=== PATIENT | female | born 1970 | race Caucasian/White ===

== ENCOUNTER → 2018-01-04 10:15 | Outpatient (CLI) | payer BC, SELFPAY ==
--- NOTE | 2018-01-04 10:22 | XR_ITS ---
XR wrist LT min 3V HISTORY ITS.REASON: LEFT WRIST PAIN ORDERING PHYSICIAN: Emir Whitney MD PATIENT AGE: 47 years Comparison: None FINDINGS: There is fragmentation of the lunate suggesting avascular necrosis. Subarticular cystic change is present involving the distal radius medially toward the ulna measuring 8 mm. Minimal sclerosis involves the distal aspect of the ulna at the distal radioulnar joint. There are mild osteoarthritic changes of the scaphotrapezium joint. No acute fracture or dislocation. IMPRESSION: 1. 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 2. Mild osteoarthritic change of the distal radial ulnar joint with subarticular cystic change of the distal radius. 3. Osteoarthritis of the scaphotrapezium joint
== END ==
PROVIDERS: PCP Family Medicine; Visit Provider Family Medicine
DX: M25.532 Pain in left wrist (principal)
CPT/HCPCS: 73110

== ENCOUNTER 2020-04-02 13:08 | Emergency (ER) | payer BC, SELFPAY ==
[2020-04-02 13:38] VITALS: BP 141/78; PULSE 101; RESP 19; TEMP 36.8; O2SAT 99; BMI 30.4
--- NOTE | 2020-04-02 13:52 | HMH.EDUTC ---
[facility] [place] Disposition Clinical Impression: Gastroenteritis Bilateral otitis externa Qualifiers: Otitis externa type: unspecified type Chronicity: chronic Qualified Code(s): H60.63 - Unspecified chronic otitis externa, bilateral Disposition: Home, Self-Care Condition on Discharge: Good Instructions: How to Instill Ear Drops, Viral Gastroenteritis Additional Instructions: If you diarrhea continues, please return a stool sample so it can be checked for different infections and food poisonings. Take the medications as directed. Follow up with your primary care physician. Use the ear drops as directed. Drink plenty of fluids. Take tylenol or ibuprofen for pain or fever. GO TO THE ER FOR ANY WORSENING SYMPTOMS FOLLOW THE DIRECTIONS ON THE COVID-19 HAND OUT THAT WE GAVE YOU REGARDING SELF-ISOLATION UNTIL YOU KNOW YOUR COVID-19 RESULTS Prescriptions: Ondansetron [Zofran 4mg ODT] 4 mg PO Q8HP PRN #15 tab.rapdis PRN Reason: Nausea Transmission Status: Received by [id number] Ciprofloxacin HCl/Dexameth [Ciprodex Otic Suspension] 2 drops EAR-BOTH BID 7 Days #1 bottle Transmission Status: Received by [email or web address] Referrals: Josi Banda MD [Primary Care Provider] - Forms: Work/School Release Time of Disposition: 14:00 Medical Decision Making - Medical Records Medical records reviewed: No: I reviewed the patient's medical records. - Des Inquiry Pt receiving controlled substance: No Vital Signs: 04/02/20 13:38 04/02/20 14:10 Temperature 98.2 F 98.2 F Temperature Source Oral Pulse Rate 101 H Pulse Rate [Right Brachial] 101 H Respiratory Rate 19 19 Blood Pressure 141/78 H Blood Pressure [Right Arm] 141/78 H Blood Pressure Mean [Right Arm] 99 Blood Pressure Source [Right Arm] Automatic Cuff Blood Pressure Position [Right Arm] Sitting 02 Sat by Pulse Oximetry 99 Oxygen Delivery Method Room Air - Lab Data Lab Results 04/02/20 14:43: [facility] Negative Orders (Tests/Meds): ORDERS Category Date Time Status Covid-19 Nasal PCR Sendout Nik Stat Lab 04/02/20 13:23 Received Strep Screen Confirmation Stat Micro 04/02/20 14:43 Received [facility] [place] HPI - General Stated complaint: covid symptons Time Seen by Provider: 04/02/20 13:45 Mode of Arrival: Ambulatory Source of Information: Patient Limitations: No Limitations Description of Symptoms (Recalled from Triage Doc. by RN): PATIENT C/O NAUSEA, DIARRHEA, AND LOW-GRADE FEVER. WANTS TO BE TESTED FOR COVID HEENT Symptoms (Recalled from RN notes): No Resp Symptoms (Recalled from RN notes): No Skin Symptoms (Recalled from RN notes): No MS Symptoms (Recalled from RN notes): No Functional Status (Recalled from RN notes): WNL - History of Present Illness Provider Complaint: She c/o diarrhea and nausea for the past 3 days. She has also had a fever up to 101. 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 She denies any known exposure to COVID-19. She does c/o sore throat also. - Related Data Previous Rx's Medication Instructions Recorded Ciprofloxacin HCl/Dexameth 2 drops EAR-BOTH BID 7 Days #1 04/02/20 [Ciprodex Otic Suspension] bottle Ondansetron [Zofran 4mg ODT] 4 mg PO Q8HP PRN #15 tab.rapdis 04/02/20 Allergies Allergy/AdvReac Type Severity Reaction Status Date / Time No Known Allergies Allergy Verified 04/02/20 13:44 - Worker's Comp Is this a Worker's Comp case?: No [facility] History - Hepatitis A Screen Drug use history?: No High risk sexual behaviors?: No History of sexually transmitted infection?: No Currently employed?: No Childcare worker?: No Do you have indoor plumbing?: Yes Do you have electricity?: Yes Attestation statement:: This patient has been screened for Hepatitis A risk factors. I have reviewed the patient's past medical history: Yes - Social History [place]
[2020-04-02 14:10] VITALS: BP 141/78; PULSE 101; RESP 19; TEMP 36.8; O2SAT 99
[2020-04-02 14:44] LABS: UTC Strep Screen (Rapid) Negative (Negative)
[2020-04-03 13:23] LABS: Covid-19 Nasal PCR Sendout Lex Not Detected
== END 2020-04-02 14:11 | disposition home or self-care (01) ==
PROVIDERS: Emergency Provider Nurse Practitioner Family; PCP Family Medicine
DX: K52.9 Noninfective gastroenteritis and colitis, unspecified (principal); H60.63 Unspecified chronic otitis externa, bilateral; Z03.818 Encounter for observation for suspected exposure to other biological agents ruled out
CPT/HCPCS: 87880; 99201; U0004

== ENCOUNTER 2021-03-05 09:14 | Emergency (ER) | payer BC, SELFPAY ==
[2021-03-05 09:20] VITALS: BP 126/89; PULSE 99; RESP 20; TEMP 36.5; O2SAT 97; BMI 31.9
[2021-03-05 09:58] VITALS: BP 126/89; PULSE 99; RESP 20; TEMP 36.5; O2SAT 97
--- NOTE | 2021-03-05 09:58 | HMH.EDUTC ---
[facility] [place] Disposition Clinical Impression: Viral syndrome Disposition: Home, Self-Care Condition on Discharge: Good Instructions: DI for Viral Syndrome, Preventing the Spread of Coronavirus Discharge Instructions Additional Instructions: Drink plenty of fluids. Take tylenol or ibuprofen for pain or fever. Take the medications as directed. Follow up with your regular doctor. GO TO THE ER FOR ANY WORSENING SYMPTOMS Quarantine until you know the results of your covid-19 test. If it is positive, the health department should call you and give you further instructions about your length of quarantine and other things. Prescriptions: Ondansetron [Zofran 4mg ODT] 4 mg PO Q8HP PRN #20 tab.rapdis PRN Reason: Nausea Transmission Status: Received by [facility] Referrals: Emir Whitney MD [Primary Care Provider] - Forms: Work/School Release Time of Disposition: 10:09 Medical Decision Making - Medical Records Medical records reviewed: No: I reviewed the patient's medical records. - Des Inquiry Pt receiving controlled substance: No Vital Signs: 03/05/21 09:20 03/05/21 09:58 Temperature 97.7 F 97.7 F Temperature Source Temporal Artery Scan Pulse Rate 99 H Pulse Rate [Left Brachial] 99 H Respiratory Rate 20 20 Blood Pressure 126/89 Blood Pressure [Left Arm] 126/89 Blood Pressure Mean [Left Arm] 101 Blood Pressure Source [Left Arm] Automatic Cuff Blood Pressure Position [Left Arm] Sitting 02 Sat by Pulse Oximetry 97 Oxygen Delivery Method Room Air - Lab Data Lab results reviewed: Yes: I reviewed the patient's lab results. Lab Results 03/05/21 10:04: Strep [facility] Negative Orders (Tests/Meds): ORDERS Category Date Time Status Strep Screen Confirmation Stat Micro 03/05/21 10:04 Received [facility] [place] HPI - General Stated complaint: cold Time Seen by Provider: 03/05/21 09:58 Mode of Arrival: Ambulatory Source of Information: Patient Limitations: No Limitations Description of Symptoms (Recalled from Triage Doc. by RN): PATIENT C/O CONGESTION, COUGH, HEADACHE SINCE THURSDAY. REQUESTING COVID TEST HEENT Symptoms (Recalled from RN notes): No Resp Symptoms (Recalled from RN notes): No Skin Symptoms (Recalled from RN notes): No MS Symptoms (Recalled from RN notes): No Functional Status (Recalled from RN notes): WNL - History of Present Illness Provider Complaint: She states that since yesterday she has had sore throat, a dry cough, and feeling bad. She has been vaccinated against covid-19. - Related Data Previous Rx's Medication Instructions Recorded Ciprofloxacin HCl/Dexameth 2 drops EAR-BOTH BID 7 Days #1 04/02/20 [Ciprodex Otic Suspension] bottle Ondansetron [Zofran 4mg ODT] 4 mg PO Q8HP PRN #15 tab.rapdis 04/02/20 Ondansetron [Zofran 4mg ODT] 4 mg PO Q8HP PRN #20 tab.rapdis 03/05/21 Allergies Allergy/AdvReac Type Severity Reaction Status Date / Time No Known Allergies Allergy Verified 04/02/20 13:44 - Worker's Comp Is this a Worker's Comp case?: No [facility] History - Hepatitis A Screen Drug use history?: No High risk sexual behaviors?: No History of sexually transmitted infection?: No Currently employed?: No Childcare worker?: No Do you have indoor plumbing?: Yes Do you have electricity?: Yes Attestation statement:: This patient has been screened for Hepatitis A risk factors. I have reviewed the patient's past medical history: Yes - Social History Alcohol Intake: never Occupational Status: other ROS Obtained: Yes All systems reviewed & no additional complaints - Constitutional Constitutional: Reports chills, Denies fever(s), Reports poor appetite, Reports malaise - Eyes Eyes: Denies eye discharge - ENT Ears, Nose, Mouth, and Throat: Reports as per HPI - Cardiovascular Cardiovascular: Denies chest pain - Respiratory Respiratory: Denies chest congestion, Reports cough, Denies dyspnea, Denies strid
[2021-03-05 10:12] LABS: UTC Strep Screen (Rapid) Negative (Negative)
== END 2021-03-05 10:17 | disposition home or self-care (01) ==
PROVIDERS: Emergency Provider Nurse Practitioner Family; PCP Family Medicine
DX: B34.9 Viral infection, unspecified (principal); Z20.822 Contact with and (suspected) exposure to COVID-19
CPT/HCPCS: 87880; 99203; G0463; U0003

== ENCOUNTER → 2021-09-07 09:11 | Outpatient (CLI) | payer BC, SELFPAY | PROVIDERS: Visit Provider Nurse Practitioner | DX: Z20.822 Contact with and (suspected) exposure to COVID-19 (principal) | CPT/HCPCS: C9803; U0003; U0005 ==

== ENCOUNTER → 2022-01-14 09:38 | Outpatient (POV) | payer BC, SELFPAY | PROVIDERS: Visit Provider Dermatology | DX: Z00.00 Encounter for general adult medical examination without abnormal findings (principal) ==

== ENCOUNTER → 2023-03-07 08:28 | Outpatient (CLI) | payer BC, SELFPAY ==
[2023-03-07 09:06] LABS: Basophils # 0.1 K/mm3 (0-0.2); Basophils % 1.3 % (0.1-2.0); Eosinophils # 0.3 K/mm3 (0.0-0.4); Eosinophils % 4.3 % (0.1-12.0); Hematocrit 52.3 % (37.0-47.0); Hemoglobin 16.8 g/dL (12.2-16.2); Lymphocytes % 25.2 % (10-50); Mean Corpuscular HGB Conc 32.1 g/dL (31.8-35.4); Mean Corpuscular Hemoglobin 30.7 pg (27.0-31.2); Mean Corpuscular Volume 95.7 fl (81-99); Mean Platelet Volume 8.1 fl (7.4-10.4); Monocytes # 0.5 K/mm3 (0.1-1.0); Monocytes % 6.4 % (1.7-9.3); Neutrophils # 4.9 K/mm3 (1.8-7.8); Neutrophils % 62.7 % (37.0-80.0); Platelet Count 290 K/mm3 (142-424); Red Blood Count 5.46 M/mm3 (4.20-5.40); White Blood Count 7.8 K/mm3 (4.8-10.8)
[2023-03-07 09:14] LABS: Chloride 104 mmol/L (98-107); Potassium 4.9 mmoL/L (3.5-5.1); Sodium 140 mmol/L (136-145)
[2023-03-07 09:16] LABS: Alanine Aminotransferase 25 U/L (12-78); Aspartate Amino Transferase 28 U/L (14-36); Blood Urea Nitrogen 12 mg/dl (7-17); Estimated Glomerular Filt Rate 75 ml/min (>60); GFR (African American) 91 ML/MIN (>60)
[2023-03-07 09:17] LABS: Albumin Level 3.9 g/dl (3.5-5.0); Albumin/Globulin Ratio 1.4 (1.1-1.8); Alkaline Phosphatase 99 U/L (38-126); Anion Gap 10.9 mEq/L (5-15); Bilirubin,Total 0.6 mg/dl (0.2-1.3); Calcium 9.7 mg/dl (8.4-10.2); Carbon Dioxide 30 mmol/L (22.0-30.0); Chol/HDL Ratio 4.7 (1-3.5); Cholesterol 295 mg/dl (140-200); Globulin 2.8 g/dL (1.3-3.2); Glucose 100 mg/dl (74-100); HDL Cholesterol 63 mg/dl (40-60); Total Protein,Serum 6.7 g/dl (6.3-8.2); Triglycerides 138 mg/dl (30-150); VLDL Cholesterol 28 mg/dL (0-40)
[2023-03-07 09:48] LABS: Thyroid Stimulating Hormone 1.09 uIU/mL (0.465-4.68)
== END ==
LOC: LAB 08:28
PROVIDERS: PCP Physician Assistant; Visit Provider Physician Assistant
DX: I10 Essential (primary) hypertension (principal); Z13.220 Encounter for screening for lipoid disorders
CPT/HCPCS: 36415; 80053; 80061; 84443; 85025

== ENCOUNTER 2023-11-14 08:10 | Outpatient (CLI) | payer BC, SELFPAY ==
[2023-11-14 08:33] LABS: Basophils # 0.1 K/mm3 (0-0.2); Basophils % 2.2 % (0.1-2.0); Eosinophils # 0.3 K/mm3 (0.0-0.4); Eosinophils % 4.9 % (0.1-12.0); Hematocrit 38.5 % (37.0-47.0); Hemoglobin 14.6 g/dL (12.2-16.2); Lymphocytes # 1.8 K/mm3 (0.7-4.5); Lymphocytes % 27.6 % (10-50); Mean Corpuscular HGB Conc 37.8 g/dL (31.8-35.4); Mean Corpuscular Hemoglobin 37.9 pg (27.0-31.2); Mean Corpuscular Volume 100.2 fl (81-99); Mean Platelet Volume 8.1 fl (7.4-10.4); Monocytes # 0.4 K/mm3 (0.1-1.0); Monocytes % 5.6 % (1.7-9.3); Neutrophils # 3.9 K/mm3 (1.8-7.8); Neutrophils % 59.7 % (37.0-80.0); Platelet Count 231 K/mm3 (142-424); Red Blood Count 3.84 M/mm3 (4.20-5.40); Red Cell Distribution Width 13.3 % (11.5-17.5); White Blood Count 6.5 K/mm3 (4.8-10.8)
[2023-11-14 08:49] LABS: Chloride 107 mmol/L (98-107); Sodium 140 mmol/L (136-145)
[2023-11-14 08:50] LABS: Potassium 5.1 mmoL/L (3.5-5.1)
[2023-11-14 08:52] LABS: Alanine Aminotransferase 20 U/L (12-78); Albumin Level 3.9 g/dl (3.5-5.0); Albumin/Globulin Ratio 1.6 (1.1-1.8); Alkaline Phosphatase 67 U/L (38-126); Anion Gap 7.1 mEq/L (5-15); Aspartate Amino Transferase 25 U/L (14-36); Bilirubin,Total 0.6 mg/dl (0.2-1.3); Blood Urea Nitrogen 16 mg/dl (7-17); Carbon Dioxide 31 mmol/L (22.0-30.0); Cholesterol 243 mg/dl (140-200); Estimated Glomerular Filt Rate 75 ml/min (>60); GFR (African American) 91 ML/MIN (>60); Globulin 2.4 g/dL (1.3-3.2); Total Protein,Serum 6.3 g/dl (6.3-8.2); Triglycerides 81 mg/dl (30-150); VLDL Cholesterol 16 mg/dL (0-40)
[2023-11-14 08:53] LABS: Calcium 9.6 mg/dl (8.4-10.2); Glucose 99 mg/dl (74-100)
[2023-11-14 09:00] LABS: Chol/HDL Ratio 2.4 (1-3.5); HDL Cholesterol 102 mg/dl (40-60)
[2023-11-14 09:03] LABS: Direct LDL Cholesterol 121.85 mg/dL (100-129)
[2023-11-14 09:23] LABS: Thyroid Stimulating Hormone 1.24 uIU/mL (0.465-4.68)
[2023-11-14 09:37] LABS: Hemoglobin A1C 5.4 % (4.0-6.0)
== END 2023-11-14 23:59 | disposition home or self-care (01) ==
LOC: LAB 08:11
PROVIDERS: PCP Physician Assistant; Visit Provider Physician Assistant
DX: E78.2 Mixed hyperlipidemia (principal); D58.2 Other hemoglobinopathies; I10 Essential (primary) hypertension; R73.09 Other abnormal glucose
CPT/HCPCS: 36415; 80053; 80061; 83036; 84443; 85025

== ENCOUNTER 2023-12-02 07:56 | Outpatient (CLI) | payer BC, SELFPAY ==
--- NOTE | 2023-12-02 | CA_ITS ---
FINAL REPORT TECHNIQUE: Grayscale, color Doppler and duplex Doppler ultrasound of the kidneys, aorta and renal arteries was performed. Multiple velocities were measured. CLINICAL HISTORY: HTN COMPARISON: None FINDINGS: Aorta velocity: 91 cm/sec Right kidney: 10.2 cm. No evidence of hydronephrosis or mass. Right intrarenal RI: 0.74 Right renal artery velocity: 201 cm/sec. Right RAR (Renal artery-Aortic Ratio): 2.2 Left Kidney: 10.2 cm. No evidence of hydronephrosis or mass. Left intrarenal RI: 0.76 Left renal artery velocity: 174 cm/sec. Left RAR (Renal Artery-Aortic Ratio): 2 IMPRESSION: There is less than 60% stenosis of the right renal artery, with no evidence of left renal artery stenosis. Recommend CT angiogram or postcontrast MR angiogram, which would be more sensitive for evaluation of possible renal artery stenosis. Reviewed, Interpreted and Dictated by Maurisio Hernandez III, MD Transcribed by Chika Peraza Authenticated and [facility]
--- NOTE | 2023-12-02 | CA_ITS ---
APPROVED REPORT EXAM: Comprehensive 2D, Doppler, and color-flow Echocardiogram Retail Planner: Lyla Shah RVT Ht: 5 ft 8 in Wt: 220lbs BSA: 2.13 BP: 160/90 mmHg Indications: HTN,SMOKER 2D Dimensions LA Volume 41.60 mL LA Volume Index 19.53 mL/m2 (M/F) 16-34 M-Mode Dimensions RVDd 2.38 cm (0.9-2.6) LA Diam 3.79 cm (1.9-4.0) LVDd 4.54 cm (3.5-5.7) LVDs 2.72 cm (3.5-5.7) IVSd 0.68 cm (0.6-1.1) PWd 0.68 cm (0.6-1.1) EF (Teich) 70.90% FS 40.10% EDV (Teich) 94.40 mL TAPSE 2.78 (<1.7) ESV (Teich) 27.50 mL LV Diastology E Decel Time 243 (160-240 msec) E/A Ratio 1.0 Aortic Valve DOROTHY Index 1.48 cm2/m2 AoV Peak Brian. 122.0 (50-130 cm/s) AI PHT 637.00 ms AO Peak GR. 6.00 mmHg AO Mean GR. 3.50 (<5 mmHg) AO VTI 30.9 (18-25 cm) DOROTHY (VTI) 3.23 (2.5-4.5 cm2) Mitral Valve MV E Max Brian. 110.0 (40-130 cm/s) MV A Velocity 111.0 (40-130 cm/s) E/A Ratio 0.99 MV PHT 71.0 ms Pulmonary Valve PV Peak Velocity 97.0 (50-150 cm/s) Left Ventricle The left ventricle is normal size. The left ventricular systolic function is normal. The left ventricular ejection fraction is within the normal range. There is normal left ventricular wall thickness. There is normal LV segmental wall motion. The left ventricular diastolic function is normal. LVEF is 55%. Right Ventricle The right ventricle is normal size. The right ventricular systolic function is normal. Atria The left atrium size is normal. The right atrium size is normal. There is no Doppler evidence of interatrial shunt. Aortic Valve The aortic valve opens well. There is no aortic valvular stenosis. Mild aortic regurgitation. Mitral Valve The mitral valve is normal in structure. No evidence of mitral valve stenosis. Mild mitral regurgitation. Tricuspid Valve The tricuspid valve leaflets are thin and pliable. Trace tricuspid regurgitation. There is insufficient TR jet to estimate RVSP. Pulmonic Valve The pulmonary valve is normal in structure. Trace pulmonic regurgitation. Great Vessels The aortic root is normal in size. The ascending aorta is not well-visualized. IVC is normal in size and collapses >50% with inspiration. Pericardium There is no pericardial effusion. Other Information Study Quality: Fair Conclusion Normal biventricular systolic function. Mild AI, mild MR. Electronically signed by : Marissa Ugalde MD 12/06/2023 21:28:46
== END 2023-12-02 23:59 | disposition home or self-care (01) ==
LOC: RT 07:59
PROVIDERS: PCP Physician Assistant; Visit Provider Physician Assistant
DX: R01.1 Cardiac murmur, unspecified (principal); I10 Essential (primary) hypertension
CPT/HCPCS: 93306; 93976

== ENCOUNTER → 2024-02-05 08:34 | Outpatient (CLI) | payer BC, SELFPAY | LOC: SL 08:35 | PROVIDERS: PCP Physician Assistant; Visit Provider Physician Assistant | DX: R06.83 Snoring (principal); R40.0 Somnolence | CPT/HCPCS: G0399 ==

== ENCOUNTER 2024-04-06 07:54 | Outpatient (CLI) | payer BC, SELFPAY ==
[2024-04-06 08:40] VITALS: PULSE 87; PULSE 91
[2024-04-06] MEDS: ALBUTEROL 0.083% 2.5 MG/3 ML NEB IH (08:40)
== END 2024-04-06 23:59 | disposition home or self-care (01) ==
LOC: RT 07:55
PROVIDERS: PCP Physician Assistant; Visit Provider Specialist
DX: J44.9 Chronic obstructive pulmonary disease, unspecified (principal); G47.33 Obstructive sleep apnea (adult) (pediatric); G47.34 Idiopathic sleep related nonobstructive alveolar hypoventilation; F17.210 Nicotine dependence, cigarettes, uncomplicated
CPT/HCPCS: 94010; 94060; 94618; 94640; 94727; 94729; 94762; J7613

== ENCOUNTER 2024-04-18 08:11 | Outpatient (CLI) | payer BC, SELFPAY ==
--- NOTE | 2024-04-18 08:17 | XR_ITS ---
FINAL REPORT CLINICAL HISTORY: COPD COMPARISON: None FINDINGS: Finding of emphysema. No acute pulmonary density is evident. There is no evidence of effusion or other pleural disease. The mediastinum has a normal appearance. The cardiac silhouette is unremarkable. IMPRESSION: Unremarkable chest exam. Reviewed, Interpreted and Dictated by Josi Cortes MD Transcribed by Nichole Alexander Authenticated and [facility]
== END 2024-04-18 23:59 | disposition home or self-care (01) ==
LOC: RAD 08:12
PROVIDERS: PCP Physician Assistant; Visit Provider Specialist
DX: G47.33 Obstructive sleep apnea (adult) (pediatric) (principal); G47.34 Idiopathic sleep related nonobstructive alveolar hypoventilation; J44.9 Chronic obstructive pulmonary disease, unspecified
CPT/HCPCS: 71046

== ENCOUNTER 2024-05-12 14:13 | Outpatient (CLI) | payer BC, SELFPAY ==
--- NOTE | 2024-05-12 14:13 | CT_ITS ---
FINAL REPORT CLINICAL HISTORY: current smoker , 1/2 ppd x 30 years FINDINGS: Axial images were obtained from the lung apex to the mid abdomen by computed tomography. Low-dose protocol was utilized. CTDl vol(mGy): 2.90 DLP (mGy-cm): 117.50 FINDINGS: There is no axillary adenopathy. There is no hilar or mediastinal adenopathy. The heart size is normal. There is no pericardial or pleural effusion. Limited images of the upper abdomen are unremarkable. Lung window images demonstrate no suspicious infiltrate or nodule. IMPRESSION: Lung RADS category 1. Recommend 12 month follow-up low-dose chest CT. Reviewed, Interpreted and Dictated by Baldemar Potter MD Transcribed by Luz Armijo Authenticated and [facility]
[2024-05-12] MEDS: METHACHOLINE CHLORIDE 65MG/18ML KIT 64 MG IH (15:22)
[2024-05-12] MEDS: ALBUTEROL 0.083% 2.5 MG/3 ML NEB IH (15:42)
== END 2024-05-12 23:59 | disposition home or self-care (01) ==
LOC: RAD 14:13
PROVIDERS: PCP Physician Assistant; Visit Provider Internal Medicine Pulmonary Disease
DX: R06.00 Dyspnea, unspecified (principal); F17.210 Nicotine dependence, cigarettes, uncomplicated
CPT/HCPCS: 71271; 94070; 95070; J7613; J7674

== ENCOUNTER 2025-01-05 11:55 | Day surgery (SDC) | payer BC, SELFPAY ==
[2025-01-04 11:44] VITALS: BMI 35.7
[2025-01-05 12:10] VITALS: BP 177/86; PULSE 105; RESP 18; TEMP 36.1; O2SAT 96
[2025-01-05] MEDS: LACTATED RINGERS 1000ML 1,000 ML 50 ML IV (12:10)
--- NOTE | 2025-01-05 12:30 | EXP.ANES.CKL ---
[facility] Disclaimer: The information contained in this section may have been updated after the patient was seen, as this information can be updated by other users. Medical History Asthma Sleep apnea Tobacco abuse Renal artery stenosis PAD (peripheral artery disease) Tobacco use HLD (hyperlipidemia) HTN (hypertension) Dyspnea Abnormal electrocardiogram [ECG] [EKG] Surgical History Hx of hand surgery Hx of section Family History Other Hypertension Sleep apnea Social History Smoking Status: Current every day smoker tobacco type: cigarettes alcohol intake: current alcohol intake frequency: a few times a week substance use type: denies use current occupational status: other Travel in the last 8 weeks?: None [facility] Anesthesia Checklist Patient Identification Patient Identification: Verbal (Name & ) Structural Data Admitted From: Home Planned Operative Procedure/s: colonoscopy Consent for Planned Operative Procedure(s) Verified: Yes NPO Status Verified Time NPO: 00:00 Airway Assessment Mallampati Score:: Class II C-Spine Mobility Assessed: Yes Dentition: Dentures-good fit Neurological Assessment Level of Consciousness: Awake, Alert and Appropriate Anesthesia Plan Anesthesia Risk discussed: Yes Anesthesia Plan: Verified ASA Class: II Anesthesia Type: MAC
--- NOTE | 2025-01-05 12:52 | EXP.HP ---
History of Present Illness *Admission Date: 01/05/25 *Reason for visit:: Screening for colon cancer *History of present illness: Mrs. Phipps is a 54-year-old female who is here for screening colonoscopy. The patient's last colonoscopy was 20 years ago was diagnostic because of anal fissure. The examination is deemed medically necessary for screening colonoscopy. The patient has been seen, interviewed and examined prior to the procedure by both myself and the anesthesia provider. [facility] Disclaimer: The information contained in this section may have been updated after the patient was seen, as this information can be updated by other users. Medical History (Updated 01/05/25 @ 12:59 by Daniele Telles II, MD) Asthma Sleep apnea Tobacco abuse Renal artery stenosis PAD (peripheral artery disease) Tobacco use HLD (hyperlipidemia) HTN (hypertension) Dyspnea Abnormal electrocardiogram [ECG] [EKG] Surgical History Hx of hand surgery Hx of section Family History Other Hypertension Sleep apnea Social History (Updated 01/05/25 @ 12:30 by Jeremy Lucas CRNA) Smoking Status: Current every day smoker tobacco type: cigarettes alcohol intake: current alcohol intake frequency: a few times a week substance use type: denies use current occupational status: other Travel in the last 8 weeks?: None Have you lived/traveled outside US in past 30 days?: No Contact w/someone who lives/traveled outside US past 30 days?: No Exposure to someone with infectious disease in past 14 days?: No Do you have a fever (greater than 100.4 F or 38 C)?: No Have you tested positive for COVID-19?: No Exposed to someone with COVID-19 in past 14 days?: No Do you have a sore throat?: No Do you have a cough?: No Do you have any weakness?: No Do you have any diarrhea?: No Are you experiencing any unusual bleeding?: No Do you have any muscle aches/pain?: No Do you have any abdominal pain?: No Are you experiencing loss of taste or smell?: No Review of Systems Review of Systems Review of systems (narrative): Negative *Cardiovascular Comments: Negative *Gastrointestinal Comments: Negative *Genitourinary Comments: Negative *Musculoskeletal Comments: Negative *Neurologic Comments: Negative Meds Home Medications and Allergies Home Medications ?Medication ?Instructions ?Recorded ?Confirmed ?Type atorvastatin 20 mg tablet 20 mg PO DAILY 12/30/23 01/04/25 History fluticasone propionate 50 2 spray intranasal DAILY 90 days 04/20/24 01/04/25 Rx mcg/actuation nasal #16 grams spray,suspension (Flonase Allergy Relief) albuterol 90 mcg-budesonide 80 2 inh inhalation .q6 PRN shortness 05/16/24 01/04/25 Rx mcg/actuation HFA aerosol inhaler of breath or wheezing #10.7 grams (Airsupra) lisinopril 20 mg tablet 20 mg PO BID 08/03/24 01/04/25 History metoprolol succinate 100 mg 50 mg PO BID 08/03/24 01/04/25 History tablet,extended release 24 hr omeprazole 20 mg capsule,delayed 20 mg PO ONCE 08/03/24 01/04/25 History release amlodipine 5 mg tablet (Norvasc) 5 mg PO DAILY #90 tabs 12/20/24 01/04/25 Rx sodium,potassium,mag sulfates 17.5 See Rx Instructions PO .COMPLEX 12/22/24 01/04/25 Rx gram-3.13 gram-1.6 gram oral soln #354 mL (Suprep Bowel Prep Kit) New Prescriptions to Start Prescriptions: Allergies Allergy/AdvReac Type Severity Reaction Status Date / Time No Known Allergies Allergy Verified 01/05/25 12:09 Exam Data for Last 24 hours Vital signs and Labs for Last 24 Hours: Temp Pulse Resp BP Pulse Ox O2 Del Method 97.0 F L 105 H 18 177/86 H 96 Room Air 01/05/25 12:10 01/05/25 12:10 01/05/25 12:10 01/05/25 12:10 01/05/25 12:10 01/05/25 12:10 I & O for Last 24 hours: Intake & Output 01/02/25 01/03/25 01/04/25 01/05/25 23:59 23:59 23:59 23:59 Weight 235 lb *Routine HEENT Exam Head: Present normocephalic Eye: Present EOMI and PERRL ENT: Present mucous membranes moist *Routine Neck Exam Neck: Present supple *Routine Respiratory Exam Respiratory: Present CTA bilaterally *Routine Cardiovascular Exam Cardiovascular: Present RRR *Routine Abdominal Exam Abdominal: Present soft and normoactive bowel sounds; Absent tenderness *Routine Rectal Exam Rectal:: deferred *Routine Genitalia Exam Genitalia:: deferred *Routine Extremities Exam Extremities: Absent cyanosis, clubbing or edema *Routine Skin Exam Skin: Present warm; Absent rash *Routine Neurological Exam Neurological: Present alert and oriented X3 Assessment and Plan *Assessment and plan (1) Screening for colon cancer: Status: Acute Category: Medical Code(s): Z12.11 - Encounter for screening for malignant neoplasm of colon Plan A/P: 1. Screening for colon cancer is the preprocedural diagnosis. The patient will be anesthetized/sedated using MAC sedation. The patient has been seen and examined. Cardiac and lung assessment prior to the examination is stable. Proceed with planned screening colonoscopy.
--- NOTE | 2025-01-05 13:00 | HMH.PROCNOTE ---
[facility] Procedure Note Date: 01/05/25 Time: 13:19 Procedure Note:: Colonoscopy Procedure Report: Colonoscopy with cold snare polypectomy Endoscopist: Daniele Telles II, MD Referring physician: Delphine Cespedes PA-C Date of Procedure: January 05, 2025 Equipment: Olympus 190 variable stiffness pediatric colonoscope Sedation: MAC sedation Indication: Mrs. Workman is a 54-year-old female who is here for screening colonoscopy. Her last colonoscopy was diagnostic in 1999 and because of an anal fissure. The patient reports no abdominal pain, weight loss, change in her bowel habits or family history of colon cancer. She will have a spot of blood from hemorrhoids when she strains and this is very infrequent. Procedure: Prior to the procedure, a history and physical exam was performed, and patient's medications and allergies were reviewed. The risks, benefits and alternatives of the sedation and procedure were discussed with the patient. All questions were answered and informed consent was obtained. The patient was brought to the procedure room. Patient identification and proposed procedure were verified by the physician and the nurse. The patient was placed in a left lateral decubitus position and the scope was passed under direct vision. Throughout the procedure, the patient's blood pressure, pulse, and oxygen saturations were monitored continuously. The colonoscopy was accomplished without difficulty. The patient tolerated the procedure well. Findings: On digital rectal examination there was normal rectal tone. There were no external hemorrhoids. The colonoscope was introduced through the anal canal to the rectum and advanced to the cecum. The ileocecal valve and appendiceal orifice were identified. The scope was advanced a short distance into the ileum which appeared grossly normal. The scope was then withdrawn into the colon. There were 8 colon polyps (ascending x 1 (9 mm), descending x 2 (3 and 4 mm), sigmoid x 3 (3, 3 and 4 mm) and rectal x 2 (4 and 4 mm)). These were all removed via cold snare polypectomy. The cecum, ascending and transverse colon and mucosa were grossly normal. There were scattered diverticuli throughout the descending and sigmoid colon (LEFT colon). The rectum itself was normal. Upon retroflexion within the rectum there were grade 2 internal hemorrhoids. The preparation was excellent throughout with [place] Preparation Score of 9. The cecal time was 12 minutes. Impression: 1. Diminutive colonic polyps x 8 2. Left-sided diverticulosis 3. Grade 2 internal hemorrhoids Plan: I will follow-up the polyp histology and recommend repeat surveillance colonoscopy again in 3 to 5 years based upon the pathology. I would encourage a fiber bowel regimen on a daily maintenance basis.
[2025-01-05 13:24] VITALS: BP 111/50; PULSE 98; RESP 18; TEMP 36.4; O2SAT 96
[2025-01-05 13:34] VITALS: BP 120/62; PULSE 73; RESP 16; O2SAT 97
[2025-01-05 13:44] VITALS: BP 128/62; PULSE 75; RESP 18; O2SAT 97
[2025-01-05 13:54] VITALS: BP 131/71; PULSE 75; RESP 16; O2SAT 98
[2025-01-05 14:20] VITALS: BP 141/79; PULSE 75; RESP 18; TEMP 36.4; O2SAT 98
== END 2025-01-05 14:20 | disposition home or self-care (01) ==
PROVIDERS: PCP Physician Assistant; Visit Provider Internal Medicine Gastroenterology
PROC: 0DJD8ZZ Inspection of Lower Intestinal Tract, Via Natural or Artificial Opening Endoscopic (ICD-10-PCS; CPT 45378; principal; 2025-01-05 13:30)
DX: Z12.11 Encounter for screening for malignant neoplasm of colon (principal); K57.30 Diverticulosis of large intestine without perforation or abscess without bleeding; K64.1 Second degree hemorrhoids; D12.2 Benign neoplasm of ascending colon; K63.5 Polyp of colon; K62.1 Rectal polyp; G47.30 Sleep apnea, unspecified; J45.909 Unspecified asthma, uncomplicated; E78.5 Hyperlipidemia, unspecified; I10 Essential (primary) hypertension; F17.210 Nicotine dependence, cigarettes, uncomplicated; Z87.19 Personal history of other diseases of the digestive system; Z79.899 Other long term (current) drug therapy
CPT/HCPCS: 45385; J2003; J2704; J7120

== ENCOUNTER 2025-01-16 16:19 | Outpatient (CLI) | payer BC, SELFPAY ==
--- NOTE | 2025-01-16 16:34 | MM_ITS ---
PROCEDURE INFORMATION: Exam: MG Bilateral Screening 3D Mammography Exam date and time: 01/16/2025 4:42 PM Age: 54 years old Clinical indication: Screening examination TECHNIQUE: Imaging protocol: Bilateral Screening tomosynthesis and 2D mammography including computer-aided detection (CAD) when performed. COMPARISON: 1. MG DMSB DIG MAMM-SCREEN DAMIEN 02/10/2014 10:25 AM 2. MG DMSB DIGITAL MAMM-SCREEN BILATERAL 12/16/2011 9:33 AM FINDINGS: MAMMOGRAPHY: Breast composition: The breasts are heterogeneously dense, which may obscure small masses. Mass: No suspicious masses. Architectural distortion: None. Calcifications: No suspicious calcifications. Asymmetric density: None. Skin thickening: None. Axillary adenopathy: None. IMPRESSION: No mammographic evidence of malignancy. Annual screening is recommended unless otherwise clinically indicated. ASSESSMENT: BI-RADS Category 1: Negative.
== END 2025-01-16 23:59 | disposition home or self-care (01) ==
LOC: RAD 16:19
PROVIDERS: PCP Physician Assistant; Visit Provider Physician Assistant
DX: Z12.31 Encounter for screening mammogram for malignant neoplasm of breast (principal); R92.333 Mammographic heterogeneous density, bilateral breasts
CPT/HCPCS: 77063; 77067

== ENCOUNTER 2025-05-29 08:02 | Outpatient (CLI) | payer BC, SELFPAY ==
--- OUTSIDE RECORDS SUMMARY | 2024-10-12 05:30 | XMS_ITS ---
Author Organization [facility] Address [address] [place] [id number] Care Team Providers Care Technical Support Analyst Name Role Phone Devonte Emir Primary Care Provider [phone] Delphine Cespedes Unavailable [phone] Allergies No Known Allergies Results Component Value Reference Range Notes colonoscopy Reviewed date:01/20/2025 04:16:18 PM Interpretation:polyps, diverticulitis, repeat 3-5 yrshemorrhoids repeat Performing Lab: Notes/Report: polyps, diverticulitis, repeat 3-5 yrshemorrhoids repeat result: polyps, diverticulitis repeat study: 3-5 years Mammogram Reviewed date:01/20/2025 04:17:12 PM Interpretation:Negative Performing Lab: Notes/Report: Negative REASON FOR VISIT Annual Checkup, Needs labs, mammogram, colon cancer screening, low dose chest CT, Tdap, & shingles vaccine Medications Medication SIG (Take, Route, Frequency, Duration) Notes Start Date End Date Status Airsupra 90-80 MCG/ACT 2 puffs as needed Inhalation Six times a day Active amLODIPine Besylate 5 MG 1 tablet Orally Once a day; Duration: 30 day(s) Active Loratadine 10 MG 1 capsule Orally Onc e a day; Duration: 30 day(s) Active PriLOSEC OTC 20 MG 1 tablet 30 minutes before morning meal Orally Once a day; Duration: 90 days Active Lisinopril 20 MG 1 tablet Orally Two times a day; Duration: 90 days Active Metoprolol Succinate ER 100 MG 1 tab Orally once a day; Duration: 90 days Active Atorvastatin Calcium 20 MG 1 tablet Oral ly Once a day; Duration: 90 days Active Immunizations Vaccine Route Administration Date Status Comme nts Tetanus Tdap-Adacel (over 7yrs) IM Intramuscular 10/12/2024 Administered Problems Problem Type SNOMED Code ICD Code Onset Dates Problem Status W/U Status Risk Notes Problem Tobacco use (896048920) Tobacco use disorder (F17.200) Active confirmed Vital Signs Blood pressure systolic 142 mm Hg 10/13/19 25 Blood pressure diastolic 80 mm Hg 025 Heart Rate 73 /min 10/12/2024 Height 68 in 10/12/2024 Weight 222.6 lbs 10/12/2024 BMI 33.84 kg/m2 10/12/2024 Encounters Encounter Location Date Provider Diagnosis [facility] [address] [place], [place] [id number] 10/12/2024 Delphine Cespedes Essential hypertensi on I10 ; Chronic GERD K21.9 ; Mixed hyperlipidemia E78.2 ; Screening mammogram, encounter for Z12.31 ; Encounter for screening colonoscopy Z12.11 and Tobacco use disorder F17.200 Assessments Encounter Date Diagnosis (ICD Code) Assessment Notes Treatment Notes Treatment Clinical Notes Section Notes 10/12/2024 Essential hypertension (ICD-10 - I10) 10/12/2024 Chronic GERD (ICD-10 - K21.9) 10/12/2024 Mixed hyperlipidemia (ICD-10 - E78.2) 10/12/2024 Screening mammogram, encounter for (ICD-10 - Z12.31) 10/12/2024 Encounter for screening colonoscopy (ICD-10 - Z12.11) 10/12/2024 Tobacco use disorder (ICD-10 - F17.200) Plan Of Treatment Medication Medication Name Sig Start Date Stop Date Notes PriLOSEC OTC 20 MG 1 tablet 30 minutes before morning meal Orally Once a day; Duration: 90 days Lisinopril 20 MG 1 tablet Orally Two times a day; Duration: 90 days Metoprolol Succinate ER 100 MG 1 tab Ora lly once a day; Duration: 90 days Atorvastatin Calcium 20 MG 1 tablet Oral ly Once a day; Duration: 90 days Pending Test Test Name Order Date CT Scan : Chest, low dose 10/12/2024 H-TSH 10/12/2024 H-CBC 10/12/2024 H-Lipid Panel 10/12/2024 H-CMP 10/12/2024 Next Appt Details Follow Up: via phone to repo rt test results, Reason: Progress Notes * JESÚS BARNHARTDOB:1970 ([age] yo F)Acc No.[id number]:10/12/2024 Progress Notes Patient: JESÚS MCBRIDE Provider: MARY Kaur :1970 A ge:54 Y S ex:Female Date:10/12/2024 Address:[address] [place] [address] [address] [facility], [id number] Pcp:Emir Whitney Subjective: * Chief Complaints: * 1 . Annual Checkup. 2. Needs labs, mammogram, colon cancer screening, low dose chest CT, Tdap, & shingles vaccine. * HPI: C ardiology: The patient is here for a check up. Pt states she doing good and denies any new concerns. Pt states she is not fasting. Pt states she does not check her BP at home. Pt is needing a refill on Metoprolol sent to [facility] in [place]. Denies : Chest Pain. D enies : Short of Breath. D enies : Dizziness. D enies : Palpitations. * ROS: D ERMATOLOGY: no R delonte. n o H shani. G ASTROENTEROLOGY: no N ausea. n o V omiting. n o D iarrhea.? U ROLOGY: no D ifficulty urinating. n o B lood in urine. * Medical History: H PV, Anal Fissure, Irritable Bowel Syndrome, Tobacco Abuse, Asthma, Hypertension. * Surgical History: C -Secton x2 , Anal Fissure Repair , Tubal Ligation . * Family History: F ather: alive 69 yrs. M other: 70 yrs, COPD. P aternal Grand Father: . P aternal Grand Mother: . M aternal Grand Father: . M aternal Grand Mother: . 1 brother(s) , 1 sister(s) . 1 son(s) , 1 daughter(s) . . * Social History: C URRENT TOBACCO USE S moking Status: Patient does smoke, packs per day: 1. C affeine: yes, frequency:. Exercise: no. Home smoke detector use: yes. Marital Status: . New since last visit: none. Past smoking status: yes, PPD: , years: ,determination:, 1 ppd. Recreational drug use: no. Alcohol: socially, Type: , Frequency: ,Years: , Determination:. Sexually active: yes. * Medications: T aking Airsupra 90-80 MCG/ACT Aerosol 2 puffs as needed Inhalation Six times a day , Taking amLODIPine Besylate 5 MG Tablet 1 tablet Orally Once a day , Taking Loratadine 10 MG Capsule 1 capsule Orally Once a day , Taking Metoprolol Succinate ER 100 MG Tablet Extended Release 24 Hour 1 tab Orally once a day , Taking Lisinopril 20 MG Tablet 1 tablet Orally Two times a day , Taking PriLOSEC OTC 20 MG Tablet Delayed Release 1 tablet 30 minutes before morning meal Orally Once a day , Taking Atorvastatin Calcium 20 MG Tablet 1 tablet Orally Once a day , Medication List reviewed and reconciled with the patient * Allergies: N .K.D.A. Objective: * Vitals: W t:222.6, Temp:97.8, BP:142/80, HR:73, Nurse:GUSTAVO, Ht: 68, Repeat BP:118/82, BMI:33.84. * Examination: G eneral Examination: General Appearance: N AD. H EENT: u nremarkable.?Oral cavity: n o lesions, mucosa moist and WNL, no erythema. N judson: s upple, no lymphadenopathy. C hest: n ormal shape and expansion. H eart: R SR. L ungs: c lear to auscultation. A bdomen: bowel sounds present, soft and nontender, no organomegaly or masses, no guarding or rigidity. N eurologic Exam: I ntact, gait normal. S kin: n ormal, no rash. P eripheral pulses: n ormal (2+) bilaterally. E xtremities: n o leg edema. Assessment: * Assessment: 1. E ssential hypertension - I10 (Primary) 2 . C hronic GERD - K21.9 ? 3 . M ixed hyperlipidemia - E78.2 4 . S creening mammogram, encounter for - Z07.26 5 . E ncounter for screening colonoscopy - Z12.11 ?6. T obacco use disorder - F17.200 Plan: * Treatment: 2. C hronic GERD Refill PriLOSEC OTC Tablet Delayed Release, 20 MG, 1 tablet 30 minutes before morning meal, Orally, Once a day, 90 days, 90, Refills 3. 3. M ixed hyperlipidemia Refill Atorvastatin Calcium Tablet, 20 MG, 1 tablet, Orally, Once a day, 90 days, 90, Refills 3.? L AB: H-Lipid Panel 4. S creening mammogram, encounter for I maging: Mammogram (Performed Date - 01/16/2025) N egative 5.?Encounter for screening colonoscopy?Imaging: colonoscopy (Performed Date - 01/05/2025)?polyps, diverticulitis, repeat 3-5 yrshemorrhoids repeat* Value Reference Range r esult: polyps, diverticulitis * r epeat study: 3-5 years * Delphine Cespedes 10/12/2024 12 :59:40 PM > Needs with Natalie Hernandez 10/12/2024 01:04:45 PM > faxed to Dr. Telles office 6.?Tobacco use disorder?Imaging: CT Scan : Chest, low dose* Delphine Cespedes 10/12/2024 1: 00:36 PM > will need after 05/12TaNatalie meadows 10/12/2024 01:10:11 PM >auth#[id number]; valid 10/12/2024 through 11/10/2024; CPT code 89408; faxed to [facility] Ashley Graham 01/09/2025 01:11:33 PM EDT >05/17/25 at 11am * Immunizations: Tetanus Tdap-Adacel (over 7yrs) : 0.5 mL (Route: Intramuscular) given by Summer Munoz on Right Deltoid * Procedure Codes: 3 074F SYST BP LT 130 MM HG, 3079F DIAST BP 80-89 MM HG * Follow Up: v ia phone to report test results * Images: Billing Information: * Visit Code: 64191 Office Visit, Est Pt., Level 4. * Procedure Codes: 3074F SYST BP LT 130 MM HG. 3079F DIAST BP 80-89 MM HG. * Electronic signature of MARY Higgins on 05/29/2025 at 08:03 AM EST Sign off status: Pending * Provider: MARY Kaur Date: 0 10/12/2024 Generated for Printi ng/Fasusanneg/eTransmitting on: 1 07/29/2024 08:03 AM EST History and Physical Notes * HPI (History of Present Illness) Category Sub-Category Detail Notes Category Not es Cardiology Short of Breath Chest Pain Palpitations Dizziness Examination Category Sub-Category Detail Notes Category Not es General Examination HEENT: unremarkable Heart: RSR Lungs: clear to auscultatio n Abdomen: bowel sounds present , soft and nontender, no organomegaly or masses, no guarding or rigidity Extremities: no leg edema General Appearance: NAD Skin: normal, no rash Neurologic Exam: Intact, gait normal Neck: supple, no lymphaden opathy Oral cavity: no lesions, mucosa m oist and WNL, no erythema Peripheral pulses: normal (2+) bilatera lly Chest: normal shape and exp ansion
--- OUTSIDE RECORDS SUMMARY | 2025-05-17 06:00 | XMS_ITS ---
[facility] Address [address] [facility] [address] [place] [id number] Care Team Providers Care Acid Recovery Operator Name Role Phone Emir Whitney Primary Care Provider AmaurydoraDelphine Unavailable [phone] Allergies No Known Allergies REASON FOR VISIT poss pink eye Medications Medication SIG (Take, Route, Frequency, Duration) Notes Start Date End Date Status Lisinopril 20 MG 1 tablet Orally Two times a day; Duration: 90 days Active Moxifloxacin HCl 0.5 % 1 drop into affec jaelyn eye Ophthalmic Three times a day; Duration: 7 days 05/17/2025 Active Metoprolol Succinate ER 100 MG 1 tab Orally once a day; Duration: 90 days Active Atorvastatin Calcium 20 MG 1 tablet Oral ly Once a day; Duration: 90 days Active PriLOSEC OTC 20 MG 1 tablet 30 minutes before morning meal Orally Once a day; Duration: 90 days Active Loratadine 10 MG 1 capsule Orally Onc e a day; Duration: 30 day(s) Active Airsupra 90-80 MCG/ACT 2 puffs as needed Inhalation Six times a day Active amLODIPine Besylate 5 MG 1 tablet Orally Once a day; Duration: 30 day(s) Active Vital Signs Blood pressure systolic 142 mm Hg 05/17/20 25 Blood pressure diastolic 80 mm Hg 025 Heart Rate 86 /min 05/17/2025 Height 68 in 05/17/2025 Weight 225.8 lbs 05/17/2025 BMI 34.33 kg/m2 05/17/2025 Encounters Encounter Location Date Provider Diagnosis [facility] [address] [facility] [address] [place] [id number] 05/17/2025 Delphine Cespedes [place] eye disease of left eye H10.022 Assessments Encounter Date Diagnosis (ICD Code) Assessment Notes Treatment Notes Treatment Clinical Notes Section Notes 05/17/2025 [place] eye disease of left eye (ICD-10 - H10.022) Plan Of Treatment Medication Medication Name Sig Start Date Stop Date Notes Moxifloxacin HCl 0.5 % 1 drop into affec jaelyn eye Ophthalmic Three times a day; Duration: 7 days 05/17/2025 Next Appt Details Follow Up: prn, Reason: Progress Notes * JESÚS BARNHARTDOB:1970 ([age] yo F)Acc No.[id number]:05/17/2025 Progress Notes Patient: JESÚS MCBRIDE Provider: MARY Kaur :1970 A ge:55 Y S ex:Female Date:05/17/2025 Address:[address] [place] [address] [address] [place], [id number] Pcp:Emir Whitney Subjective: * Chief Complaints: * 1 . Poss pink eye. * HPI: O pthalmology: 55 year old female presents with c/o redness. c/o drainage. c/o eye pain P t states she thinks she has pink eye on the left. Pt states she noticed it Thursday. Denies : blurring of vision. D enies : itching. * ROS: D ERMATOLOGY: no R delonte. [...] capsule Orally Once a day , Taking PriLOSEC OTC 20 MG Tablet Delayed Release 1 tablet 30 minutes before morning meal Orally Once a day , Taking Metoprolol Succinate ER 100 MG Tablet Extended Release 24 Hour 1 tab Orally once a day , Taking Atorvastatin Calcium 20 MG Tablet 1 tablet Orally Once a day , Taking Lisinopril 20 MG Tablet 1 tablet Orally Two times a day , Medication List reviewed and reconciled with the patient * Allergies: N .K.D.A. Objective: * Vitals: W t: 225.8, Temp: 98.3, BP: 142/80, HR: 86, Nurse: josefina, Ht: 68, BMI:34.33. * Examination: G eneral Examination: General Appearance: N AD. H EENT: c onjunctiva erythematous on the left clear, PERRLA, TM's normal, translucent. O ral cavity: n o lesions, mucosa moist and WNL, no erythema. N judson: s upple, no lymphadenopathy. C hest: n ormal shape and expansion. H eart: R SR. L ungs: c lear to auscultation. Assessment: * Assessment: 1. [place] eye disease of left eye - H10.022 (Primary) Plan: * Treatment: * Follow Up: p rn * Images: Billing Information: * Visit Code: 90438 Office Visit, Est Pt., Level 3. * Procedure Codes: * Electronic signature of MARY Higgins on 05/29/2025 at 08:04 AM EST Sign off status: Pending * Provider: MARY Kaur Date: Generated for Howie marie/Genaro/Jignesh on: 07/29/2024 08:04 AM EST History and Physical Notes * HPI (History of Present Illness) Category Sub-Category Detail Notes Category Not es Opthalmology blurring of vision redness drainage eye pain Pt states she thinks she has pink eye on the left. Pt states she noticed it Thursday itching Examination Category Sub-Category Detail Notes Category Not es General Examination HEENT: conjunctiva erythematous on the left clear, PERRLA, TM's normal, translucent Heart: RSR Lungs: clear to auscultatio n General Appearance: NAD Neck: supple, no lymphaden opathy Oral cavity: no lesions, mucosa m oist and WNL, no erythema Chest: normal shape and exp ansion
--- OUTSIDE RECORDS SUMMARY | 2025-05-29 08:04 | XMS_ITS | Patient Health Record ---
[facility] Address [address] [facility] [address] [place] [id number] Care Team Providers Care Environmental Intern Name Role Phone Devonte Emir Primary Care Provider [phone] Delphine Cespedes Unavailable [phone] Allergies No Known Allergies Results Component Value Reference Range Notes Mammogram Reviewed date:01/20/2025 04:17:12 PM Interpretation:Negative Performing Lab: Notes/Report: Negative colonoscopy Reviewed date:01/20/2025 04:16:18 PM Interpretation:polyps, diverticulitis, repeat 3-5 yrshemorrhoids repeat Performing Lab: Notes/Report: polyps, diverticulitis, repeat 3-5 yrshemorrhoids repeat result: polyps, diverticulitis repeat study: 3-5 years Medications Medication SIG (Take, Route, Frequency, Duration) [...] Once a day; Duration: 90 days Active Airsupra 90-80 MCG/ACT 2 puffs as needed Inhalation Six times a day Active amLODIPine Besylate 5 MG 1 tablet Orally Once a day; Duration: 30 day(s) Active Immunizations Vaccine Route Administration Date Status Comme nts COVID 19 Moderna Unknown 08/15/2020 Administered COVID 19 Moderna Unknown 09/14/2020 Administered COVID 19 Moderna Unknown 06/05/2021 Administered COVID 19 Moderna Unknown 02/10/2022 Administered Fluzone PF Quad (6-35 months) Unknown 05/25/2019 Administered Fluzone PF Quad (6-35 months) Unknown 05/14/2020 Administered Fluzone PF Quad (6-35 months) Unknown 05/21/2021 Administered Fluzone PF Quad (6-35 months) Unknown 06/03/2022 Administered Hepatitis A (adult) Unknown 12/03/2018 Administered Tetanus Tdap-Adacel (over 7yrs) IM Intramuscular 10/12/2024 Administered tuberculin (ppd) ID Intradermal 02/24/2007 Administered Problems Problem Type SNOMED Code ICD Code Onset Dates Problem Status W/U Status Risk Notes Problem Essential hypertension (88544504) Essential hypertension (I10) Active confirmed Problem Otitis externa (1232263) Otitis externa (H60.90) Active confirmed Problem Mixed hyperlipidemia (109482892) Mixed hyperlipidemia (E78.2) Active confirmed Problem Gastroesophageal reflux disease (disorder) (750831598) Chronic GERD (K21.9) Active confirmed Problem Neuropathy (204771914) Neuropathy (G62.9) Active confirmed Problem Tobacco use (642331270) Tobacco use disorder (F17.200) Active confirmed Problem Increased hemoglobin (087708740) Elevated hemoglobin (D58.2) Active confirmed Problem Renal artery stenosis (342738280) Renal artery stenosis (I70.1) Active confirmed Problem [place]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) Active confirmed Vital Signs Heart Rate 86 /min 05/17/2025 Blood pressure diastolic 80 mm Hg 05/17/2025 Height 68 in 05/17/2025 Blood pressure systolic 142 mm Hg 05/17/2025 Weight 225.8 lbs 05/17/2025 BMI 34.33 kg/m2 05/17/2025 Encounters Encounter Location Date Provider Diagnosis [facility] [address] [place], [place] [id number] 10/12/2024 Delphine Crowdy Essential hypertensi on I10 ; Chronic GERD K21.9 ; Mixed hyperlipidemia E78.2 ; Screening mammogram, encounter for Z12.31 ; Encounter for screening colonoscopy Z12.11 and Tobacco use disorder F17.200 [facility] [address] [place], [place] [id number] 05/17/2025 Delphine Cespedes [place] eye disease of left eye H10.022 [facility] [address] [place], [place] [id number] 08/16/2024 Emir [place] Essential hypertensi on I10 ; Chronic GERD K21.9 and Mixed hyperlipidemia E78.2 [facility] [address] [place], [place] [id number] 10/12/2024 Delphine Amaurydy [facility] [address] [place], [place] [id number] 11/15/2024 Emir [place] Essential hypertensi on I10 [facility] [address] [place], [place] [id number] 01/20/2025 Delphine Crowdy [facility] [address] [place], [place] [id number] 02/09/2025 Emir [place] Assessments Encounter Date Diagnosis (ICD Code) Assessment Notes Treatment Notes Treatment Clinical Notes Section Notes 08/16/2024 Essential hypertension (ICD-10 - I10) 10/12/2024 Essential hypertension (ICD-10 - I10) 10/12/2024 Chronic GERD (ICD-10 - K21.9) 11/15/2024 Essential hypertension (ICD-10 - I10) 05/17/2025 [place] eye disease of left eye (ICD-10 - H10.022) 08/16/2024 Chronic GERD (ICD-10 - K21.9) 10/12/2024 Mixed hyperlipidemia (ICD-10 - E78.2) 08/16/2024 Mixed hyperlipidemia (ICD-10 - E78.2) 10/12/2024 Screening mammogram, encounter for (ICD-10 - Z12.31) 10/12/2024 Encounter for screening colonoscopy (ICD-10 - Z12.11) 10/12/2024 Tobacco use disorder (ICD-10 - F17.200) Plan Of Treatment Pending Test Test Name Order Date CT Scan : Chest, low dose 10/12/2024 H-TSH 10/12/2024 H-CBC 10/12/2024 H-Lipid Panel 10/12/2024 H-CMP 10/12/2024 Insurance Providers Payer Name Payer Address Payer Phone Subscriber Number Group Number Insured Name Patient Relationship to Insured Coverage Start Date Coverage End Date [employer]EL [employer] [address] [place] [address] [id number] JESÚS BARNHART Self - patient is the insured Medications Administered Medication Instructions Date of Administration Dosage Notes Depo- Medrol 40 mg/ml 08/17/2009 60 mg Medical (General) History Medical History History ICD Code HPV Anal Fissure Irritable Bowel Syndrome Tobacco Abuse asthma Hypertension Surgical History Surgery Date(Month/Year) C-Secton x2 Anal Fissure Repair Tubal Ligation Hospitalization History Reason Date(Month/Year)
--- NOTE | 2025-05-29 08:07 | CT_ITS ---
FINAL REPORT TECHNIQUE: Thin section axial images were obtained through the lungs using a low-dose technique per lung cancer screening protocol. Reconstruction images were obtained using the axial data. Exam was performed using dose reduction technique. CLINICAL HISTORY: lung cancer screening current smoker 1/2ppd x40 years COMPARISON: 05/12/2024 FINDINGS: CTDLvol: 2.90 DLP: 101.34 Current smoker 20 pack year history Lungs: No acute pulmonary abnormality. No suspicious nodules. Lymph nodes: No thoracic lymphadenopathy. Mediastinum: Heart size is normal. Pleura/pericardium: No pleural or pericardial effusion. Other: No acute abnormality in the upper abdomen. IMPRESSION: No suspicious pulmonary nodule or mass. Lung RADS: 1 Recommendation: 12-month follow-up LDCT. Reviewed, Interpreted and Dictated by Dacia Geronimo MD Transcribed by Chika Peraza Authenticated and [facility]
== END 2025-05-29 23:59 | disposition home or self-care (01) ==
LOC: RAD 08:02
PROVIDERS: PCP Physician Assistant; Visit Provider Internal Medicine Pulmonary Disease
DX: Z12.2 Encounter for screening for malignant neoplasm of respiratory organs (principal); F17.210 Nicotine dependence, cigarettes, uncomplicated
CPT/HCPCS: 71271